=== PATIENT | female | born 1980 | race American Indian/Alaskan Native ===

== ENCOUNTER 2020-05-28 10:23 | Outpatient (CLI) | payer OTHER ==
--- NOTE | 2020-05-28 11:31 | XRay Report ---
AP AND LATERAL VIEWS OF THE LEFT TIBIA/FIBULA INDICATION: LEFT LEG DAMAGE. COMPARISON: No relevant prior imaging study available. FINDINGS: No significant skeletal abnormality. No soft tissue swelling or foreign bodies. IMPRESSION: 1. No acute findings. Signer Name: Lino Sam MD Signed: 05/28/2020 11:26 AM Workstation Name: [id number]
== END 2020-05-28 10:24 | disposition home or self-care (01) ==
LOC: XRAY 10:23
PROVIDERS: ATTEND Internal Medicine
DX: S89.92XA Unspecified injury of left lower leg, initial encounter (principal); F31.89 Other bipolar disorder; F41.9 Anxiety disorder, unspecified; X58.XXXA Exposure to other specified factors, initial encounter; Y93.89 Activity, other specified; Y92.89 Other specified places as the place of occurrence of the external cause; Y99.8 Other external cause status

== ENCOUNTER 2021-04-15 08:58 | Emergency (ER) | payer SELFPAY ==
[2021-04-15 10:16] VITALS: BP 123/81
[2021-04-15] MEDS ORDERED: SODIUM CHLORIDE 0.9% 1000 ML 1,000 ML IV ONE (10:37)
[2021-04-15] MEDS ORDERED: fentaNYL 100 MCG/2 ML INJ IV ONE (10:37)
[2021-04-15] MEDS ORDERED: METOCLOPRAMIDE 10 MG/2 ML INJ IV ONE (10:37)
--- NOTE | 2021-04-15 10:41 | Emergency Department Report ---
ED N/V/D HPI - General Chief complaint: Nausea/Vomiting/Diarrhea Stated complaint: NAUSEA/DIZZY Time Seen by Provider: 04/15/21 10:23 Source: patient Mode of arrival: Ambulatory Limitations: No Limitations - History of Present Illness Initial comments: Patient presents with nausea, vomiting, diarrhea, and generalized abdominal pain. She started getting sick last night and today. She has gotten dizzy. She feels weak. She states that she had a hard time walking in because she was so lightheaded. Patient denies hematemesis or coffee-ground emesis. There is no melenic stool. She has not eaten anything that tasted bad or unusual. She has had no sick contacts. She has not been on antibiotics lately. Patient denies any dysuria or frequency. She states that she is having diffuse abdominal pain that seems to wax and wane. It is sometimes more intense than others. She also reports having diffuse back pain associated with this. There has been no recent travel out of the country. - Related Data Previous Rx's Medication Instructions Recorded Last Taken Type Hyoscyamine Subl [Levsin Sl 0.125 0.125 mg SL Q6HR PRN #20 tab 04/15/21 Unknown Rx TAB] Ondansetron [Zofran ODT TAB] 8 mg PO Q8HR PRN #20 tab.rapdis 04/15/21 Unknown Rx Allergies Allergy/AdvReac Type Severity Reaction Status Date / Time No Known Allergies Allergy Unverified 05/28/20 10:24 ED Review of Systems ROS: Stated complaint: NAUSEA/DIZZY Other details as noted in HPI Comment: All other systems reviewed and negative Constitutional: denies: fever Eyes: denies: vision change ENT: denies: epistaxis Respiratory: denies: cough Cardiovascular: denies: chest pain Endocrine: denies: unexplained weight loss Gastrointestinal: as per HPI Genitourinary: denies: dysuria Musculoskeletal: as per HPI Skin: denies: rash Neurological: denies: headache Hematological/Lymphatic: denies: easy bruising ED Past Medical Hx - Past Medical History Previous Medical History?: No - Family History Family history: no significant - Medications Home Medications: Home Medications Medication Instructions Recorded Confirmed Last Taken Type Hyoscyamine Subl [Levsin Sl 0.125 0.125 mg SL Q6HR PRN #20 tab 04/15/21 Unknown Rx TAB] Ondansetron [Zofran ODT TAB] 8 mg PO Q8HR PRN #20 tab.rapdis 04/15/21 Unknown Rx ED Physical Exam - General Limitations: No Limitations, Other (Pulse ox noted and normal) General appearance: alert, in distress (Moderate discomfort), other (Nontoxic) - Head Head exam: Present: atraumatic, normocephalic - Eye Eye exam: Present: normal appearance, PERRL, EOMI. Absent: scleral icterus - ENT ENT exam: Present: mucous membranes dry, normal external ear exam - Neck Neck exam: Present: normal inspection. Absent: meningismus - Respiratory Respiratory exam: Present: normal lung sounds bilaterally. Absent: respiratory distress - Cardiovascular Cardiovascular Exam: Present: regular rate, normal rhythm - GI/Abdominal GI/Abdominal exam: Present: soft, other (Hyperactive bowel sounds). Absent: distended, tenderness - Extremities Exam Extremities exam: Present: normal capillary refill - Back Exam Back exam: Absent: CVA tenderness (R), CVA tenderness (L) - Neurological Exam Neurological exam: Present: alert, oriented X3, CN II-XII intact. Absent: motor sensory deficit - Psychiatric Psychiatric exam: Present: normal affect, normal mood - Skin Skin exam: Present: warm, dry ED Course Vital Signs 04/15/21 10:13 Temperature 98.7 F Pulse Rate 95 H Respiratory 18 Rate Blood Pressure 123/81 [Right] O2 Sat by Pulse 98 Oximetry - Reevaluation(s) Reevaluation #1: 04/15/21 12:49 Labs have been noted. Urine is still pending. Reevaluation #2: 04/15/21 13:38 Urine is still pending. Patient has had no further vomiting. ED Medical Decision Making - Lab Data Result diagrams: 04/15/21 10:48 04/15/21 10:48 - Medical Decision Making Patient presented with abdominal pain, flank pain, and GI upset. She does not have peritoneal finding. I am not concerned for perforated ulcer or other peritonitis features. She does not have right lower quadrant tenderness to suggest appendicitis. She does not have significant tenderness in the right upper quadrant suggestive of biliary disease. In addition, there is no evidence of acute hepatitis or pancreatitis. She is not so ectopic has been excluded. She was treated symptomatically and referred for outpatient evaluation. She certainly could have had a viral enteritis. She also admits that this started after eating potato salad. The potato salad she states that tasted fine, but no one else ate it. She does not know if anyone else has been ill however. Critical Care Time: No Critical care attestation.: If time is entered above; I have spent that time in minutes in the direct care of this critically ill patient, excluding procedure time. ED Disposition Clinical Impression: Nausea vomiting and diarrhea, Generalized abdominal pain, Dehydration Disposition: 01 HOME / SELF CARE / HOMELESS Is pt being admited?: No Condition: Stable Instructions: Food Choices to Help Relieve Diarrhea, Adult, Dehydration, Adult, [id number], Rehydration, Adult, Nausea and Vomiting, Adult Additional Instructions: Have a bland diet. Drink plenty of water. Return for problems. Follow-up with your family doctor or the referral doctor for recheck. Prescriptions: Hyoscyamine Subl [Levsin Sl 0.125 TAB] 0.125 mg SL Q6HR PRN #20 tab PRN Reason: Abdominal pain Ondansetron [Zofran ODT TAB] 8 mg PO Q8HR PRN #20 tab.rapdis PRN Reason: Nausea Referrals: PRIMARY CARE, [Primary Care Provider] - 3-5 Days SHWETA CONNER MD [Staff Physician] - 3-5 Days
[2021-04-15 11:15] LABS: Basophils % (Auto) 0.3 % (0.0-1.8); Eosinophils % (Auto) 0.1 % (0.0-4.3); Hematocrit 43.2 % (30.3-42.9); Hemoglobin 14.1 gm/dl (10.1-14.3); Lymphocytes # (Auto) 0.4 K/mm3 (1.2-5.4); Lymphocytes % (Auto) 5.1 % (13.4-35.0); Mean Corpuscular HGB Conc 33 % (30-34); Mean Corpuscular Volume 76 fl (79-97); Monocytes # (Auto) 0.7 K/mm3 (0.0-0.8); Platelet Count 205 K/mm3 (140-440); Red Blood Count 5.71 M/mm3 (3.65-5.03); Red Cell Distribution Width 15.4 % (13.2-15.2)
[2021-04-15 11:29] LABS: Alanine Aminotransferase 14 units/L (7-56); Albumin 4.3 g/dL (3.9-5); Blood Urea Nitrogen 15 mg/dL (7-17); Calcium 9.1 mg/dL (8.4-10.2); Hemolysis Index 19
[2021-04-15 11:58] LABS: BUN/Creatinine Ratio 21
== END 2021-04-16 00:58 | disposition home or self-care (01) ==
LOC: ED 08:58
DX: E86.0 Dehydration (principal); R11.2 Nausea with vomiting, unspecified; R19.7 Diarrhea, unspecified; R10.84 Generalized abdominal pain; Z79.899 Other long term (current) drug therapy
CPT/HCPCS: 36415; 80053; 83690; 84703; 85025; 96361; 96374; 96375; 99283; J2765; J3010; J7030; Q0162